=== PATIENT | male | born 1965 | race Caucasian/White ===

== ENCOUNTER 2021-09-09 13:36 | Inpatient (IN) | payer BC ==
[2021-09-09] MEDS ORDERED: Adenosine 6 MG/2 ML SDV ONE (13:58)
[2021-09-09] MEDS ORDERED: Adenosine 6 MG/2 ML SDV IVPUSH ONE (14:05)
[2021-09-09] MEDS ORDERED: Diltiazem 25 MG/5 ML SDV IVPUSH ONE (14:07)
[2021-09-09] MEDS ORDERED: Sodium Chloride 0.9% 2.5 ML Syringe FLUSH PRN (14:08)
[2021-09-09] MEDS ORDERED: Sodium Chloride 0.9% 1,000 ML IV ONE ×2 (14:08→17:58)
[2021-09-09] MEDS ORDERED: Aspirin 81 MG Tab.Chew PO ONE (14:08)
[2021-09-09] MEDS ORDERED: Sodium Chloride 0.9% 10 ML Syringe FLUSH PRN (14:08)
[2021-09-09] MEDS ORDERED: Enoxaparin 100 MG/1 ML Syringe SUBCUT STA (14:11)
[2021-09-09] MEDS ORDERED: Diltiazem 100 MG in Sodium Chloride 0.9% 100 ML IV SCH (14:15)
--- NOTE | 2021-09-09 14:31 | CR ---
INDICATION: Supraventricular tachycardia. Comparison: None. TECHNIQUE: Portable AP chest. FINDINGS: Normal size cardiac silhouette. Infiltrate lower lobe right lung. No pneumothorax or pleural effusion. IMPRESSION: Infiltrates lower lobe right lung. Dictated by Lori Cain MD @ 09/09/2021 2:30:08 PM (Electronically Signed)
[2021-09-09 14:51] LABS: BLOOD UREA NITROGEN,BUN 37 mg/dL (7.0-18.0); CARBON DIOXIDE,CO2 18.8 mmol/L (21.0-32.0); CHLORIDE,CL 97 mmol/L (98-107); GLUCOSE RANDOM 117 mg/dL (74-106); POTASSIUM,K 4.3 mmol/L (3.5-5.1); SODIUM,NA 135 mmol/L (136-148)
--- NOTE | 2021-09-09 14:52 | EDM.PDOC ---
<Pavel Trimble - Last Filed: 09/10/21 00:12> ED HPI GENERAL MEDICAL PROBLEM - General Chief Complaint: Gastrointestinal Problem Stated Complaint: NOT EATING OR KEEPING FOOD DOWN Time Seen by Provider: 09/09/21 13:45 - History of Present Illness INITIAL COMMENTS - FREE TEXT/NARRATIVE: Patient was signed out to me by Dr. Olguin pending reevaluation at 7pm. Apparently there are no available beds and at this time there is no ICU bed available here. We will continue to try to titrate the patient's Cardizem drip down. I promptly performed a detailed physical examination and my examination was done after ED treatments were initiated by the signout provider. Patient has been under the care of previous provider up until this point. On reevaluation patient's heart rate was rate controlled and was on lowest setting of Cardizem drip. The patient's blood pressure was borderline at this time however with a MAP greater than 65. The patient had no complaints. At this time the patient was already provided p.o. Cardizem. Will turn off the Cardizem drip and reevaluate. Dr. Simon did come and evaluate the patient recommended CT angiogram of the patient is able to obtain it. On repeat labs the patient's kidney function had improved. The patient is able to obtain a CT angiogram of the chest safely. Obtain a CT angiogram to evaluate for pulmonary embolism. The radiological images were viewed by myself along with reading the report from the radiologist. CT angiogram of the chest does not reveal any evidence of acute pulmonary embolism or other abnormality other than peripheral emphysema and moderate Covid pneumonia. The patient is observed in the emergency department for approximately 4 to 5 hours after Cardizem drip was titrated off. The patient's blood pressure continued to remain stable and his heart rate was controlled. I contacted Dr. Simon who accepted the patient for inpatient admission. - Related Data Allergies Allergy/AdvReac Type Severity Reaction Status Date / Time No Known Allergies Allergy Verified 09/10/21 01:06 Home Meds: Home Meds . [No Known Home Meds] 09/09/21 [History] Departure - Departure Time of Disposition: 23:33 Disposition: Admitted As Inpatient 66 Condition: Serious Clinical Impression: COVID-19, Atrial fibrillation with RVR, JANIA (acute kidney injury) - Discharge Information <Baron Olguin - Last Filed: 09/10/21 19:54> ED HPI GENERAL MEDICAL PROBLEM - History of Present Illness INITIAL COMMENTS - FREE TEXT/NARRATIVE: HISTORY AND PHYSICAL: History of present illness: Is a 55-year-old gentleman with a history significant for atrial fibrillation as well as a history of stroke in the past with minimal residual to his left upper extremity weakness, who is supposed to be on Eliquis but has been noncompliant for approximately 1 to 2 years now secondary to an argument with his primary care physician and inability to follow-up in the office 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 Patient reports he has had no recent fevers, shakes, chills, dysuria, frequency, urgency. Patient reports that he felt like his heart was racing and has had some chest discomfort that is been intermittent over the last several days. Patient reports that he has had significant amount of diarrhea and reports anytime he eats or drinks anything it comes out shortly thereafter is liquid stools. Patient denies any melena or b right red blood per rectum. Patient reports that he has had a dark productive cough over the last several days. Patient has then had Covid in the past nor has he had his Covid vaccinations. Patient does not complain of any shortness of breath. Patient complains of no peripheral edema or calf tenderness. Patient does complain of generalized malaise, headache, and constant thirst. Patient denies any hematuria. Review of systems: As per history of present illness and below otherwise all systems reviewed and negative. Past medical history: As per history of present illness and as reviewed below otherwise noncontributory. Surgical history: As per history of present illness and as reviewed below otherwise noncontributory. Social history: No reported history of drug abuse. Family history: As per history of present illness and as reviewed below otherwise noncontributory. Physical exam: This patient was seen and evaluated during the 2019 SARS-CoV-2 novel coronavirus pandemic period. Community viral transmission is ongoing at time of this encounter and the emergency department is operating under pandemic response procedures. Constitutional: Patient is oriented to person, place, and time. Appears well- developed and well-nourished. No distress. HEENT: Dry mucous membranes Head: Normocephalic and atraumatic Eyes: Right eye exhibits no discharge. Left eye exhibits no discharge. No scleral icterus Neck: Normal range of motion. No tracheal deviation present. Cardiovascular: Irregularly irregular tachycardia. Pulmonary: Effort normal, no respiratory distress. No wheezing rales or rhonchi Abd: Soft, nondistended, no rebound/guarding, no psoas or obturator signs, no tenderness at Mcberney's point, no Sawant's sign. Pt does not present with an exam that would be consistent with an acute surgical abdomen at this time. Mild tenderness palpation suprapubic region Musculoskeletal: Normal range of motion Neurologic: Alert and oriented to person, place and time. Skin: [place], warm and dry. Dry mucous membranes Psychiatric: Normal mood and affect. Behavior is normal. Judgment and thought content normal. Nursing note and vital signs have been reviewed Diagnostics: [] Therapeutics: 55-year-old gentleman who presented to the ED today in rapid atrial fibrillation. Patient has been noncompliant with his anticoagulation medicine for quite some time now. Patient's blood pressure is stable here in the ED. Patient's heart rate was greater than 200. Carotid sinus massage was performed in the ED with occasional dropped ventricular rate revealing no flutter waves. Patient was given adenosine 12 mg IV with no change in his heart rate or slowing his heart rate. Cardizem 25 mg/kg IV bolus over 5 minutes followed by a Cardizem drip was initiated. Patient's heart rate has significantly slowed after the bolus to a rate of 120 150 bpm. Assessment and plan: 55-year-old gentleman with a history of A. fib who presents in rhythm consistent with atrial fibrillation with RVR as well as clinical dehydration with significant episodes of diarrhea over the last week. Patient will have labs ordered including CBC, CMP, TSH, urinalysis, stool studies. Patient will have a CT scan of his abdomen pelvis secondary to abdominal pain once his heart rate has stabilized. Patient will get started on a Cardizem drip as the adenosine did not cardiovert him noted by carotid sinus massage. Patient be reevaluated after labs and CT scan obtained. Patient's chest x-ray reveals an infiltrate in the right lower lobe. Patient does not have a classical increased interstitial markings that are diffuse that are commonly seen in Covid pneumonia. Possibility of underlying lobar pneumonia exists. Patient was started on Rocephin and Zithromax. Patient also get started on remdesivir here in the ED secondary to his positive Covid test. You will also receive a dose of Decadron. Patient's Covid test is positive. Patient's labs are all within normal limits with a normal troponin. Patient has had C. difficile, Shigella, stool cultures sent to the lab secondary to his diarrhea. Critical Care: The high probability of sudden, clinically significant dete rioration in the patient's condition required the highest level of my preparedness to intervene urgently. The services I provided to this patient were to treat and/or prevent clinically significant deterioration. Services included the following: chart data review, reviewing nursing notes and/or old charts, documentation time, ergonomics consultant collaboration regarding findings and treatment options, medication orders and management, direct patient care, vital sign assessments and ordering, interpreting and reviewing diagnostic studies/lab tests. Aggregate critical care time includes only time during which I was engaged inwork directly related to the patient's care, as described above, whether at the bedside or elsewhere in the Emergency Department. It did not include time spent performing other reported procedures or the services of residents, students, nurses or physician assistants. Critical Care Time: 35 minutes Patient will need admission however unfortunately did not have any ICU beds available here in [facility] to accommodate a Cardizem drip. 3:40 PM: Consulted [facility] currently on EMTALA diversion for ICU beds. No availability at this time to accept patient for transfer. 3:45 PM: Consulted [facility] currently on EMTALA diversion for ICU beds. No availability at this time to accept patient for transfer. 3:50 PM: Consult with [facility]:currently on EMTALA diversion for ICU beds. No availability at this time to accept patient for transfer. 3:55 PM: Consulted [facility]:currently on EMTALA diversion for ICU beds. No availability at this time to accept patient for transfer. 4 PM: Consulted [facility]: currently on EMTALA diversion for ICU beds. No availability at this time to accept patient for transfer. 4:10 PM: Consulted the [place] transfer center: They will check with hospitals in the vicinity and they will get back to me later. 5:44 PM: Consulted [facility]: currently on EMTALA diversion for ICU beds. No availability at this time to accept patient for transfer. 5:50 PM: Consulted [facility] [place], [facility], [facility] in [place]: All are currently on EMTALA diversion for ICU beds. No availability at this time to accept patient for transfer. 5:17 PM: In summary, this is a 55-year-old gentleman with a history significant for atrial fibrillation, CVA, noncompliance with his anticoagulation medication who presents ER today secondary to feeling extremely dehydrated secondary to diarrhea for the last week as well as generalized malaise over the last couple days with a dark productive cough and tactile fevers. Upon arrival to the ED the patient was noted to have a heart rate of approximately 200 bpm and appeared to be clearly in atrial fibrillation. Carotid sinus massage was initially performed that did slow his heart rate down to approximately 170 bpm and revealed no flutter waves and appear to be more consistent with atrial fibrillation. In order to confirm this, adenosine 12 mg IV was administered which again slowed his ventricularly rate slightly resulting in no flutter waves. Patient's heart rate sped back up to approximately 200 bpm after the adenosine wore off so patient was bolused with Cardizem and started on a Cardizem drip. Patient is CT scan of his abdomen pelvis secondary to the abdominal discomfort that he was having. Patient CT scan of his abdomen pelvis did not reveal any significant pathology within his abdomen but did reveal a groundglass appearance to the the bases of his lungs consistent with Covid pneumonia. Patient did have a chest x-ray which revealed a right lower lobe infiltrate that was concerning for lobar pneumonia. 1. Atrial fibrillation with RVR: Patient has been started on Lovenox subcu secondary to his noncompliance with his anticoagulation therapy while in atrial fibrillation. Patient was also given a dose of p.o. Cardizem to initiate transition from IV to oral rate control. Patient has been given 1 L of NSS for hydration. Given that the patient is currently on a Cardizem drip he will need ICU/stepdown unit level of care which is currently unavailable in many of the facilities in [place] and the surrounding [place] area. EKG #2 obtained at 5:14 PM: EKG: As interpreted by ER physician: Sharif: Nonspecific ST-T wave abnormalities Normal axis No evidence of ST elevation [place] Atrial fibrillation with a heart of 115 2. Covid pneumonia: Patient has a positive Covid test and has not had his Covid vaccination. Patient's CT scan of his abdomen pelvis reveals groundglass appearance to the lower lung perkins. Given the initial chest x-ray patient was started on Rocephin and Zithromax and blood cultures x2 and lactic acid was obtained. Patient has been given a dose of remdesivir IV as well as Decadron. 3. Abdominal pain: Patient is clinically and hemodynamically stable. Etiology of abdominal pain is likely related to his coronavirus infection with significant amount of diarrhea. Patient has had C. difficile, stool cultures sent to the lab. Patient will get hydrated here in the ED. Patient has been given antiemetics and feels improved at this time. 4. Chest pain: This is likely secondary to inflammatory changes from his coronavirus as well as his A. fib with RVR. Patient's troponin is negative. Patient's chest x-ray reveals infiltrate/pneumonia. Patient is not hypoxic and not complaining of shortness of breath at this time. I believe PE is extremely unlikely at this time. Definitive disposition and diagnosis as appropriate pending reevaluation and review of above. 544 abdomen Pain Score (Numeric/FACES): 5 Past Medical History Cardiovascular History: Reports: Afib Neurological History: Reports: CVA - Infectious Disease History Infectious Disease History: Reports: Chicken Pox Social & Family History - Recreational Drug Use Recreational Drug Use: No ED ROS GENERAL - Review of Systems Review Of Systems: See Below ED EXAM, GENERAL - Physical Exam Exam: See Below #2 Interpretation EKG Date: 09/09/21 Time: 17:14 EKG Interpretation Comments: EKG: As interpreted by ER physician: Sharif: Nonspecific ST-T wave abnormalities Normal axis No evidence of ST elevation [place] Atrial fibrillation with a heart rate of 115 Course - Vital Signs Last Recorded V/S: Last Vital Signs Temp 95.7 F L 09/10/21 16:00 Pulse 88 09/10/21 16:00 Resp 22 H 09/10/21 16:00 BP 98/59 L 09/10/21 16:00 Pulse Ox 91 L 09/10/21 16:00 - Orders/Labs/Meds Orders: Active Orders 24 hr Category Date Time Status Diltiazem IR [Cardizem] Med 09/10/21 00:00 Active 30 mg PO Q6HR Pantoprazole [ProTONIX] Med 09/09/21 20:15 Active 40 mg PO DAILY Medication Orders Diltiazem HCl (Diltiazem Ir 30 Mg Tab) 30 mg PO Q6HR [facility] Last Admin: 09/10/21 18:08 Dose: 30 mg Documented by: Admin: 09/10/21 11:59 Dose: 30 mg Documented by: Admin: 09/10/21 06:41 Dose: Not Given Documented by: Admin: 09/10/21 02:04 Dose: 30 mg Documented by: ELIZABETH Enoxaparin Sodium (Enoxaparin 100 Mg/1 Ml Syringe) 80 mg SUBCUT Q12H [facility] Last Admin: 09/10/21 18:08 Dose: 80 mg Documented by: Admin: 09/10/21 06:42 Dose: 80 mg Documented by: ELIZABETH Pantoprazole Sodium (Pantoprazole 40 Mg Tab.Cr) 40 mg PO DAILY [facility] Last Admin: 09/10/21 08:00 Dose: 40 mg Documented by: Admin: 09/09/21 21:39 Dose: 40 mg Documented by: PARAS Sodium Chloride (Sodium Chloride 0.9% 10 Ml Syringe) 10 ml FLUSH ASDIRECTED PRN PRN Reason: Keep Vein Open Last Admin: 09/09/21 14:16 Dose: 10 ml Documented by: NILDA Sodium Chloride (Sodium Chloride 0.9% 2.5 Ml Syringe) 2.5 ml FLUSH ASDIRECTED PRN PRN Reason: Keep Vein Open Last Admin: 09/09/21 14:16 Dose: 2.5 ml Documented by: NILDA Labs: Laboratory Tests 09/09/21 09/09/21 09/09/21 Range/Units 13:55 13:55 13:55 WBC 7.53 (4.0-11.0) K/uL RBC 5.75 (4.50-5.90) M/uL Hgb 18.2 H (13.0-17.0) g/dL Hct 51.9 H (38.0-50.0) % MCV 90.3 (80.0-98.0) fL MCH 31.7 (27.0-32.0) pg MCHC 35.1 (31.0-37.0) g/dL RDW Std Deviation 43.3 (28.0-62.0) fl RDW Coeff of Manish 13 (11.0-15.0) % Plt Count 130 L (150-400) K/uL MPV 11.10 (7.40-12.00) fL Add Manual Diff YES Neutrophils % (Manual) 77 (48.0-80.0) % Band Neutrophils % 2 % Lymphocytes % (Manual) 18 (16.0-40.0) % Monocytes % (Manual) 3 (0.0-15.0) % Nucleated RBC % 0.0 /100WBC Absolute Seg Neuts 5.8 H (1.4-5.7) Band Neutrophils # 0.2 Lymphocytes # (Manual) 1.4 (0.6-2.4) Monocytes # (Manual) 0.2 (0.0-0.8) Nucleated RBCs # 0 K/uL INR 1.21 APTT 30.8 (18.6-31.3) SEC Sodium 135 L (136-148) mmol/L Potassium 4.3 (3.5-5.1) mmol/L Chloride 97 L (98-107) mmol/L Carbon Dioxide 18.8 L (21.0-32.0) mmol/L BUN 37 H (7.0-18.0) mg/dL Creatinine 2.1 H (0.8-1.3) mg/dL Est Cr Clr Drug Dosing 44.82 mL/min Estimated GFR (MDRD) 32.7 ml/min Glucose 117 H (74-106) mg/dL Lactic Acid (0.4-2.0) mmol/L Calcium 8.7 (8.5-10.1) mg/dL Magnesium (1.8-2.4) mg/dL Total Bilirubin 0.5 (0.2-1.0) mg/dL AST 51 H (15-37) IU/L ALT 26 (14-63) IU/L Alkaline Phosphatase 62 (46-116) U/L Troponin I < 0.050 (0.000-0.056) ng/mL Total Protein 8.2 (6.4-8.2) g/dL Albumin 3.2 L (3.4-5.0) g/dL Globulin 5.0 H (2.6-4.0) g/dL Albumin/Globulin Ratio 0.6 L (0.9-1.6) TSH, Ultra Sensitive 0.65 (0.36-3.74) uIU/mL Urine Color Urine Appearance Urine pH (5.0-8.0) Ur Specific [place] (1.001-1.035) Urine Protein (NEGATIVE) mg/dL Urine Glucose (UA) (NEGATIVE) mg/dL Urine Ketones (NEGATIVE) mg/dL Urine Occult Blood (NEGATIVE) Urine Nitrite (NEGATIVE) Urine Bilirubin (NEGATIVE) Urine Urobilinogen (<2.0) EU/dL Ur Leukocyte Esterase (NEGATIVE) U Hyaline Cast (Auto) (0-2/LPF) Urine RBC (0-2/HPF) Urine WBC (0-5/HPF) Ur Epithelial Cells (NONE-FEW) Urine Bacteria (NEGATIVE) Urine Mucus (NONE-MOD) SARS-CoV-2 RNA (CHERYL) (NEGATIVE) 09/09/21 09/09/21 09/09/21 Range/Units 13:55 14:00 16:30 WBC (4.0-11.0) K/uL RBC (4.50-5.90) M/uL Hgb (13.0-17.0) g/dL Hct (38.0-50.0) % MCV (80.0-98.0) fL MCH (27.0-32.0) pg MCHC (31.0-37.0) g/dL RDW Std Deviation (28.0-62.0) fl RDW Coeff of Manish (11.0-15.0) % Plt Count (150-400) K/uL MPV (7.40-12.00) fL Add Manual Diff Neutrophils % (Manual) (48.0-80.0) % Band Neutrophils % % Lymphocytes % (Manual) (16.0-40.0) % Monocytes % (Manual) (0.0-15.0) % Nucleated RBC % /100WBC Absolute Seg Neuts (1.4-5.7) Band Neutrophils # Lymphocytes # (Manual) (0.6-2.4) Monocytes # (Manual) (0.0-0.8) Nucleated RBCs # K/uL INR APTT (18.6-31.3) SEC Sodium (136-148) mmol/L Potassium (3.5-5.1) mmol/L Chloride (98-107) mmol/L Carbon Dioxide (21.0-32.0) mmol/L BUN (7.0-18.0) mg/dL Creatinine (0.8-1.3) mg/dL Est Cr Clr Drug Dosing mL/min Estimated GFR (MDRD) ml/min Glucose (74-106) mg/dL Lactic Acid 1.8 (0.4-2.0) mmol/L Calcium (8.5-10.1) mg/dL Magnesium 2.2 (1.8-2.4) mg/dL Total Bilirubin (0.2-1.0) mg/dL AST (15-37) IU/L ALT (14-63) IU/L Alkaline Phosphatase (46-116) U/L Troponin I (0.000-0.056) ng/mL Total Protein (6.4-8.2) g/dL Albumin (3.4-5.0) g/dL Globulin (2.6-4.0) g/dL Albumin/Globulin Ratio (0.9-1.6) TSH, Ultra Sensitive (0.36-3.74) uIU/mL Urine Color Urine Appearance Urine pH (5.0-8.0) Ur Specific [place] (1.001-1.035) Urine Protein (NEGATIVE) mg/dL Urine Glucose (UA) (NEGATIVE) mg/dL Urine Ketones (NEGATIVE) mg/dL Urine Occult Blood (NEGATIVE) Urine Nitrite (NEGATIVE) Urine Bilirubin (NEGATIVE) Urine Urobilinogen (<2.0) EU/dL Ur Leukocyte Esterase (NEGATIVE) U Hyaline Cast (Auto) (0-2/LPF) Urine RBC (0-2/HPF) Urine WBC (0-5/HPF) Ur Epithelial Cells (NONE-FEW) Urine Bacteria (NEGATIVE) Urine Mucus (NONE-MOD) SARS-CoV-2 RNA (CHERYL) POSITIVE H (NEGATIVE) 09/09/21 09/09/21 Range/Units 19:31 20:30 WBC (4.0-11.0) K/uL RBC (4.50-5.90) M/uL Hgb (13.0-17.0) g/dL Hct (38.0-50.0) % MCV (80.0-98.0) fL MCH (27.0-32.0) pg MCHC (31.0-37.0) g/dL RDW Std Deviation (28.0-62.0) fl RDW Coeff of Manish (11.0-15.0) % Plt Count (150-400) K/uL MPV (7.40-12.00) fL Add Manual Diff Neutrophils % (Manual) (48.0-80.0) % Band Neutrophils % % Lymphocytes % (Manual) (16.0-40.0) % Monocytes % (Manual) (0.0-15.0) % Nucleated RBC % /100WBC Absolute Seg Neuts (1.4-5.7) Band Neutrophils # Lymphocytes # (Manual) (0.6-2.4) Monocytes # (Manual) (0.0-0.8) Nucleated RBCs # K/uL INR APTT (18.6-31.3) SEC Sodium 137 (136-148) mmol/L Potassium 3.9 (3.5-5.1) mmol/L Chloride 106 (98-107) mmol/L Carbon Dioxide 19.2 L (21.0-32.0) mmol/L BUN 37 H (7.0-18.0) mg/dL Creatinine 1.4 H (0.8-1.3) mg/dL Est Cr Clr Drug Dosing 67.23 mL/min Estimated GFR (MDRD) 52.2 ml/min Glucose 155 H (74-106) mg/dL Lactic Acid (0.4-2.0) mmol/L Calcium 7.4 L (8.5-10.1) mg/dL Magnesium 1.8 (1.8-2.4) mg/dL Total Bilirubin (0.2-1.0) mg/dL AST (15-37) IU/L ALT (14-63) IU/L Alkaline Phosphatase (46-116) U/L Troponin I (0.000-0.056) ng/mL Total Protein (6.4-8.2) g/dL Albumin (3.4-5.0) g/dL Globulin (2.6-4.0) g/dL Albumin/Globulin Ratio (0.9-1.6) TSH, Ultra Sensitive (0.36-3.74) uIU/mL Urine Color YELLOW Urine Appearance SLT CLOUDY Urine pH 5.5 (5.0-8.0) Ur Specific [place] >= 1.030 (1.001-1.035) Urine Protein 100 H (NEGATIVE) mg/dL Urine Glucose (UA) NEGATIVE (NEGATIVE) mg/dL Urine Ketones 15 H (NEGATIVE) mg/dL Urine Occult Blood MODERATE H (NEGATIVE) Urine Nitrite NEGATIVE (NEGATIVE) Urine Bilirubin NEGATIVE (NEGATIVE) Urine Urobilinogen 0.2 (<2.0) EU/dL Ur Leukocyte Esterase NEGATIVE (NEGATIVE) U Hyaline Cast (Auto) 1-4 (0-2/LPF) Urine RBC 0-2 (0-2/HPF) Urine WBC 0-2 (0-5/HPF) Ur Epithelial Cells OCCASIONAL (NONE-FEW) Urine Bacteria FEW (NEGATIVE) Urine Mucus LIGHT (NONE-MOD) SARS-CoV-2 RNA (CHERYL) (NEGATIVE) Meds: Medications Generic Name Dose Route Start Last Admin Trade Name Freq PRN Reason Stop Dose Admin Diltiazem HCl 30 mg 09/10/21 00:00 09/10/21 18:08 Diltiazem Ir 30 Mg Tab PO 30 mg Q6HR SHALONDA Administration Enoxaparin Sodium 80 mg 09/10/21 06:00 09/10/21 18:08 Enoxaparin 100 Mg/1 Ml Syringe SUBCUT 80 mg Q12H SHALONDA Administration Pantoprazole Sodium 40 mg 09/09/21 20:15 09/10/21 08:00 Pantoprazole 40 Mg Tab.Cr PO 40 mg DAILY SHALONDA Administration Sodium Chloride 10 ml 09/09/21 14:08 09/09/21 14:16 Sodium Chloride 0.9% 10 Ml Syringe FLUSH 10 ml ASDIRECTED PRN Administration Keep Vein Open Sodium Chloride 2.5 ml 09/09/21 14:08 09/09/21 14:16 Sodium Chloride 0.9% 2.5 Ml Syringe FLUSH 2.5 ml ASDIRECTED PRN Administration Keep Vein Open Discontinued Medications Generic Name Dose Route Start Last Admin Trade Name Freq PRN Reason Stop Dose Admin Acetaminophen 650 mg 09/09/21 17:29 09/09/21 18:08 Acetaminophen 325 Mg Tab PO 09/09/21 17:30 650 mg NOW ONE Administration Adenosine Confirm 09/09/21 13:58 09/09/21 14:16 Adenosine 6 Mg/2 Ml Sdv Administered 09/09/21 13:59 Not Given Dose 12 mg .ROUTE .STK-MED ONE Adenosine 12 mg 09/09/21 14:05 09/09/21 14:14 Adenosine 6 Mg/2 Ml Sdv IVPUSH 09/09/21 14:06 12 mg NOW ONE Administration Aspirin 324 mg 09/09/21 14:08 09/09/21 14:15 Aspirin 81 Mg Tab.Chew PO 09/09/21 14:09 324 mg ONETIME ONE Administration Dexamethasone 10 mg 09/09/21 16:14 09/09/21 17:21 Dexamethasone 10 Mg/Ml Sdv IVPUSH 09/09/21 16:15 10 mg ONETIME ONE Administration Diltiazem HCl 20 mg 09/09/21 14:07 09/09/21 14:15 Diltiazem 25 Mg/5 Ml Sdv IVPUSH 09/09/21 14:08 20 mg ONETIME ONE Administration Diltiazem HCl 180 mg 09/09/21 16:23 09/09/21 17:21 Diltiazem 180 Mg Cap.Cd PO 09/09/21 16:24 180 mg ONETIME ONE Administration Diltiazem HCl 30 mg 09/09/21 18:57 09/09/21 19:29 Diltiazem Ir 30 Mg Tab PO 09/09/21 18:58 30 mg ONETIME ONE Administration Enoxaparin Sodium 80 mg 09/09/21 14:11 09/09/21 15:01 Enoxaparin 100 Mg/1 Ml Syringe 1 mg/kg (80 mg) 09/09/21 14:12 80 mg SUBCUT Administration ONETIME STA Enoxaparin Sodium 80 mg 09/10/21 03:00 09/10/21 04:34 Enoxaparin 60 Mg/0.6 Ml Syringe SUBCUT Not Given Q12H SHALONDA Diltiazem HCl 100 mg/ Sodium 100 mls @ 5 mls/hr 09/09/21 14:15 09/09/21 19:33 Chloride IV 0 mg/hr NOW SHALONDA 0 mls/hr Titration Protocol 5 MG/HR Sodium Chloride 1,000 mls @ 999 mls/hr 09/09/21 14:08 09/09/21 14:15 Normal Saline IV 09/09/21 15:08 999 mls/hr .Bolus ONE Administration Ceftriaxone Sodium/Dextrose 1 50 mls @ 100 mls/hr 09/09/21 15:50 09/09/21 16:11 gm/ Premix IV 09/09/21 16:19 100 mls/hr ONETIME ONE Administration Azithromycin 500 mg/ Sodium 250 mls @ 250 mls/hr 09/09/21 16:00 09/09/21 18:31 Chloride IV 250 mls/hr ONETIME SHALONDA Administration Remdesivir 200 mg/ Sodium 250 mls @ 250 mls/hr 09/09/21 16:14 09/09/21 17:22 Chloride IV 09/09/21 16:15 250 mls/hr ONETIME ONE Administration Remdesivir 200 mg/ Sodium 250 mls @ 250 mls/hr 09/09/21 17:00 09/09/21 17:39 Chloride IV 09/09/21 17:59 Not Given ONETIME ONE Lactated Ringer's 1,000 mls @ 999 mls/hr 09/09/21 17:28 09/09/21 18:50 Ringers, Lactated IV 09/09/21 18:28 999 mls/hr .BOLUS ONE Administration Sodium Chloride 1,000 mls @ 999 mls/hr 09/09/21 17:58 09/09/21 13:50 Normal Saline IV 09/09/21 18:58 999 mls/hr .Bolus ONE Administration Remdesivir 100 mg/ Sodium 100 mls @ 100 mls/hr 09/10/21 18:45 Chloride IV 09/13/21 19:44 Q24H SHALONDA Iopamidol 75 ml 09/09/21 20:36 09/09/21 20:37 Iopamidol 755 Mg/Ml 500 Ml Multipack Bottle IVPUSH 09/09/21 20:37 75 ml ONETIME STA Administration Ketorolac Tromethamine 15 mg 09/09/21 18:38 09/09/21 18:51 Ketorolac 30 Mg/Ml Sdv IVPUSH 09/09/21 18:39 15 mg ONETIME ONE Administration Sepsis Event Note (ED) - Evaluation Sepsis Screening Result: No Definite Risk
[2021-09-09] MEDS ORDERED: cefTRIAXone 1 GM in Premix Bag 1 BAG IV ONE (15:50)
[2021-09-09] MEDS ORDERED: Azithromycin 500 MG in Sodium Chloride 0.9% 250 ML IV SCH (16:00)
[2021-09-09] MEDS ORDERED: REMDESIVIR 200 MG in Sodium Chloride 0.9% 250 ML IV ONE ×2 (16:14→17:00)
[2021-09-09] MEDS ORDERED: Dexamethasone 10 MG/ML SDV IVPUSH ONE (16:14)
[2021-09-09] MEDS ORDERED: Diltiazem 180 MG Cap.CD PO ONE (16:23)
--- NOTE | 2021-09-09 16:28 | CT ---
INDICATION: Abdominal pain and diarrhea TECHNIQUE: CT abdomen and pelvis acquired without IV contrast. COMPARISON: None FINDINGS: Lower chest: Ground-glass opacities in both bases. Liver: Unremarkable. Spleen: Unremarkable. Pancreas: Unremarkable. Gallbladder and bile ducts: Unremarkable. Adrenal glands: Unremarkable. Kidneys: Nonobstructive 2 mm left renal stone. GI tract: Unremarkable. Appendix is normal. Vascular structures: Aorta iliac calcifications. Lymph nodes: Unremarkable. Miscellaneous: Small fat containing umbilical and right inguinal hernias. No free air or significant free fluid. Pelvic Organs: Unremarkable. Bones: Unremarkable for age. IMPRESSION: Ground-glass opacities in both lung bases concerning for infection, including COVID-19. No acute intra-abdominal process identified. Nonobstructive left nephrolithiasis. Please note that all CT scans at this facility use dose modulation, iterative reconstruction, and/or weight-based dosing when appropriate to reduce radiation dose to as low as reasonably achievable. Dictated by Myrtle Brown MD @ 09/09/2021 4:27:03 PM (Electronically Signed)
[2021-09-09] MEDS ORDERED: Lactated Ringers 1,000 ML IV ONE (17:28)
[2021-09-09] MEDS ORDERED: Acetaminophen 325 MG Tab PO ONE (17:29)
[2021-09-09] MEDS ORDERED: Ketorolac 30 MG/ML SDV IVPUSH ONE (18:38)
[2021-09-09] MEDS ORDERED: Diltiazem IR 30 MG Tab PO ONE (18:57)
[2021-09-09 19:51] LABS: CARBON DIOXIDE,CO2 19.2 mmol/L (21.0-32.0); POTASSIUM,K 3.9 mmol/L (3.5-5.1)
--- NOTE | 2021-09-09 20:19 | PCM.HP.2 ---
H&P History of Present Illness - General Date of Service: 09/09/21 - History of Present Illness Initial Comments - Free Text/Narative: 55 yo male who presents with ten days of abdominal pain and diarrhea. He has not eating much and feels dehydrated. He also reports fevers and mild nonproductive cough. He was seen in the ED and noted to have atrial fibrillation with RVR. He reports a history of a.fib but has not been on any medications for it. CT scan of the abdomen was unremarkable but did reports bibasilar lung infiltrates. PAtient was given rocephin and azithromycin. Patient denies any shortness of breath he was on supplemental oxygen but was quickly weaned off. He was started on a diltiazem drip and his heart is now in the 90s. abdomen Pain Score (Numeric/FACES): 5 - Related Data Allergies/Adverse Reactions: Allergies Allergy/AdvReac Type Severity Reaction Status Date / Time No Known Allergies Allergy Verified 09/09/21 13:43 Home Medications: Home Meds . [No Known Home Meds] 09/09/21 [History] Past Medical History Cardiovascular History: Reports: Afib Neurological History: Reports: CVA - Infectious Disease History Infectious Disease History: Reports: Chicken Pox Social & Family History - Recreational Drug Use Recreational Drug Use: No H&P Review of Systems - Review of Systems: Review Of Systems: Comprehensive ROS is negative, except as noted in HPI. Exam - Exam Exam: See Below - Vital Signs Vital Signs: Last Vital Signs Temp 37.9 C 09/09/21 17:57 Pulse 95 09/09/21 19:00 Resp 18 09/09/21 18:00 BP 96/58 L 09/09/21 19:00 Pulse Ox 98 09/09/21 19:00 Weight: 81.647 kg - Exam General: Alert, Oriented HEENT: Mucosa Moist & [place] Lungs: Clear to Auscultation, Normal Respiratory Effort Cardiovascular: Regular Rate, Irregular Rhythm GI/Abdominal Exam: Soft, Non-Tender, No Distention Extremities: Non-Tender, No Pedal Edema - Patient Data Lab Results Last 24 hrs: Laboratory Results - last 24 hr 09/09/21 09/09/21 09/09/21 Range/Units 13:55 13:55 13:55 WBC 7.53 (4.0-11.0) K/uL RBC 5.75 (4.50-5.90) M/uL Hgb 18.2 H (13.0-17.0) g/dL Hct 51.9 H (38.0-50.0) % MCV 90.3 (80.0-98.0) fL MCH 31.7 (27.0-32.0) pg MCHC 35.1 (31.0-37.0) g/dL RDW Std Deviation 43.3 (28.0-62.0) fl RDW Coeff of Manish 13 (11.0-15.0) % Plt Count 130 L (150-400) K/uL MPV 11.10 (7.40-12.00) fL Add Manual Diff YES Neutrophils % (Manual) 77 (48.0-80.0) % Band Neutrophils % 2 % Lymphocytes % (Manual) 18 (16.0-40.0) % Monocytes % (Manual) 3 (0.0-15.0) % Nucleated RBC % 0.0 /100WBC Absolute Seg Neuts 5.8 H (1.4-5.7) Band Neutrophils # 0.2 Lymphocytes # (Manual) 1.4 (0.6-2.4) Monocytes # (Manual) 0.2 (0.0-0.8) Nucleated RBCs # 0 K/uL INR 1.21 APTT 30.8 (18.6-31.3) SEC Sodium 135 L (136-148) mmol/L Potassium 4.3 (3.5-5.1) mmol/L Chloride 97 L (98-107) mmol/L Carbon Dioxide 18.8 L (21.0-32.0) mmol/L BUN 37 H (7.0-18.0) mg/dL Creatinine 2.1 H (0.8-1.3) mg/dL Est Cr Clr Drug Dosing 44.82 mL/min Estimated GFR (MDRD) 32.7 ml/min Glucose 117 H (74-106) mg/dL Lactic Acid (0.4-2.0) mmol/L Calcium 8.7 (8.5-10.1) mg/dL Magnesium (1.8-2.4) mg/dL Total Bilirubin 0.5 (0.2-1.0) mg/dL AST 51 H (15-37) IU/L ALT 26 (14-63) IU/L Alkaline Phosphatase 62 (46-116) U/L Troponin I < 0.050 (0.000-0.056) ng/mL Total Protein 8.2 (6.4-8.2) g/dL Albumin 3.2 L (3.4-5.0) g/dL Globulin 5.0 H (2.6-4.0) g/dL Albumin/Globulin Ratio 0.6 L (0.9-1.6) TSH, Ultra Sensitive 0.65 (0.36-3.74) uIU/mL SARS-CoV-2 RNA (CHERYL) (NEGATIVE) 09/09/21 09/09/21 09/09/21 Range/Units 13:55 14:00 16:30 WBC (4.0-11.0) K/uL RBC (4.50-5.90) M/uL Hgb (13.0-17.0) g/dL Hct (38.0-50.0) % MCV (80.0-98.0) fL MCH (27.0-32.0) pg MCHC (31.0-37.0) g/dL RDW Std Deviation (28.0-62.0) fl RDW Coeff of Manish (11.0-15.0) % Plt Count (150-400) K/uL MPV (7.40-12.00) fL Add Manual Diff Neutrophils % (Manual) (48.0-80.0) % Band Neutrophils % % Lymphocytes % (Manual) (16.0-40.0) % Monocytes % (Manual) (0.0-15.0) % Nucleated RBC % /100WBC Absolute Seg Neuts (1.4-5.7) Band Neutrophils # Lymphocytes # (Manual) (0.6-2.4) Monocytes # (Manual) (0.0-0.8) Nucleated RBCs # K/uL INR APTT (18.6-31.3) SEC Sodium (136-148) mmol/L Potassium (3.5-5.1) mmol/L Chloride (98-107) mmol/L Carbon Dioxide (21.0-32.0) mmol/L BUN (7.0-18.0) mg/dL Creatinine (0.8-1.3) mg/dL Est Cr Clr Drug Dosing mL/min Estimated GFR (MDRD) ml/min Glucose (74-106) mg/dL Lactic Acid 1.8 (0.4-2.0) mmol/L Calcium (8.5-10.1) mg/dL Magnesium 2.2 (1.8-2.4) mg/dL Total Bilirubin (0.2-1.0) mg/dL AST (15-37) IU/L ALT (14-63) IU/L Alkaline Phosphatase (46-116) U/L Troponin I (0.000-0.056) ng/mL Total Protein (6.4-8.2) g/dL Albumin (3.4-5.0) g/dL Globulin (2.6-4.0) g/dL Albumin/Globulin Ratio (0.9-1.6) TSH, Ultra Sensitive (0.36-3.74) uIU/mL SARS-CoV-2 RNA (CHERYL) POSITIVE H (NEGATIVE) 09/09/21 Range/Units 19:31 WBC (4.0-11.0) K/uL RBC (4.50-5.90) M/uL Hgb (13.0-17.0) g/dL Hct (38.0-50.0) % MCV (80.0-98.0) fL MCH (27.0-32.0) pg MCHC (31.0-37.0) g/dL RDW Std Deviation (28.0-62.0) fl RDW Coeff of Manish (11.0-15.0) % Plt Count (150-400) K/uL MPV (7.40-12.00) fL Add Manual Diff Neutrophils % (Manual) (48.0-80.0) % Band Neutrophils % % Lymphocytes % (Manual) (16.0-40.0) % Monocytes % (Manual) (0.0-15.0) % Nucleated RBC % /100WBC Absolute Seg Neuts (1.4-5.7) Band Neutrophils # Lymphocytes # (Manual) (0.6-2.4) Monocytes # (Manual) (0.0-0.8) Nucleated RBCs # K/uL INR APTT (18.6-31.3) SEC Sodium 137 (136-148) mmol/L Potassium 3.9 (3.5-5.1) mmol/L Chloride 106 (98-107) mmol/L Carbon Dioxide 19.2 L (21.0-32.0) mmol/L BUN 37 H (7.0-18.0) mg/dL Creatinine 1.4 H (0.8-1.3) mg/dL Est Cr Clr Drug Dosing 67.23 mL/min Estimated GFR (MDRD) 52.2 ml/min Glucose 155 H (74-106) mg/dL Lactic Acid (0.4-2.0) mmol/L Calcium 7.4 L (8.5-10.1) mg/dL Magnesium 1.8 (1.8-2.4) mg/dL Total Bilirubin (0.2-1.0) mg/dL AST (15-37) IU/L ALT (14-63) IU/L Alkaline Phosphatase (46-116) U/L Troponin I (0.000-0.056) ng/mL Total Protein (6.4-8.2) g/dL Albumin (3.4-5.0) g/dL Globulin (2.6-4.0) g/dL Albumin/Globulin Ratio (0.9-1.6) TSH, Ultra Sensitive (0.36-3.74) uIU/mL SARS-CoV-2 RNA (CHERYL) (NEGATIVE) Result Diagrams: 09/09/21 13:55 09/09/21 19:31 Sepsis Event Note - Evaluation Sepsis Screening Result: No Definite Risk - Focused Exam Vital Signs: Vital Signs Temp Temp Pulse Resp BP Pulse Ox 09/09/21 19:00 95 96/58 L 98 09/09/21 18:00 106 H 18 107/59 L 93 L 09/09/21 17:57 37.9 C 104 H 18 115/65 94 L 09/09/21 17:30 111 H 18 107/68 95 09/09/21 16:57 116 H 18 100/70 93 L 09/09/21 16:39 36.6 C 138 H 16 93/60 94 L 09/09/21 16:13 117 H 16 104/67 96 09/09/21 15:57 127 H 18 95/47 L 96 09/09/21 15:09 124 H 18 103/80 96 09/09/21 14:51 138 H 113/74 97 09/09/21 14:35 127 H 18 95/60 94 L 09/09/21 14:20 102/77 09/09/21 13:45 36.6 C 94 20 137/89 - Problem List (1) COVID-19 SNOMED Code(s): 351394105 ICD Code: U07.1 - COVID-19 Status: Acute Current Visit: Yes (2) Dehydration SNOMED Code(s): 61600490 ICD Code: E86.0 - DEHYDRATION Status: Acute Current Visit: Yes (3) JANIA (acute kidney injury) SNOMED Code(s): 04462259, 17551808 ICD Code: N17.9 - ACUTE KIDNEY FAILURE, UNSPECIFIED Status: Acute Current Visit: Yes (4) Atrial fibrillation with RVR SNOMED Code(s): 154777040778896 ICD Code: I48.91 - UNSPECIFIED ATRIAL FIBRILLATION Status: Acute Current Visit: Yes Problem List Initiated/Reviewed/Updated: Yes Orders Last 24hrs: Active Orders 24 hr Category Date Time Status Ang Chest [CT] Stat Exams 09/09/21 19:57 Ordered BILIRUBIN DIRECT [CHEM] DAILY Lab 09/10/21 18:45 Ordered BILIRUBIN DIRECT [CHEM] DAILY Lab 09/11/21 18:45 Ordered BILIRUBIN DIRECT [CHEM] DAILY Lab 09/12/21 18:45 Ordered BILIRUBIN DIRECT [CHEM] DAILY Lab 09/13/21 18:45 Ordered BILIRUBIN DIRECT [CHEM] DAILY Lab 09/14/21 18:45 Ordered C DIFFICILE AG/TOXIN W/REFLEX [RM] Stat Lab 09/09/21 14:56 Ordered COMPREHENSIVE METABOLIC PN,CMP [CHEM] DAILY Lab 09/10/21 18:45 Ordered COMPREHENSIVE METABOLIC PN,CMP [CHEM] DAILY Lab 09/11/21 18:45 Ordered COMPREHENSIVE METABOLIC PN,CMP [CHEM] DAILY Lab 09/12/21 18:45 Ordered COMPREHENSIVE METABOLIC PN,CMP [CHEM] DAILY Lab 09/13/21 18:45 Ordered COMPREHENSIVE METABOLIC PN,CMP [CHEM] DAILY Lab 09/14/21 18:45 Ordered CULTURE BLOOD [BC] Stat Lab 09/09/21 16:23 Received CULTURE BLOOD [BC] Stat Lab 09/09/21 16:30 Received STOOL CULTURE/SHIGA TOXIN [MREF] Stat Lab 09/09/21 14:56 Ordered UA W/EDUARDO RFLX IF INDICATED [URIN] Stat Lab 09/09/21 14:09 Ordered Azithromycin [Zithromax] 500 mg Med 09/09/21 16:00 Active Sodium Chloride 0.9% [Normal Saline AdvBag] 250 ml IV ONETIME Diltiazem IR [Cardizem] Med 09/10/21 00:00 Ordered 30 mg PO Q6HR Diltiazem [Cardizem] 100 mg Med 09/09/21 14:15 Active Sodium Chloride 0.9% [Normal Saline AdvBag] 100 ml IV NOW Enoxaparin [Lovenox] Med 09/10/21 03:00 Ordered 80 mg SUBCUT Q12H Pantoprazole [ProTONIX] Med 09/09/21 20:15 Ordered 40 mg PO DAILY Remdesivir 100 mg Med 09/10/21 18:45 Active Sodium Chloride 0.9% [Normal Saline AdvBag] 100 ml IV Q24H Sodium Chloride 0.9% [Saline Flush] Med 09/09/21 14:08 Active 10 ml FLUSH ASDIRECTED PRN Sodium Chloride 0.9% [Saline Flush] Med 09/09/21 14:08 Active 2.5 ml FLUSH ASDIRECTED PRN Blood Culture x2 Reflex Set [OM.PC] Stat Oth 09/09/21 15:50 Ordered Saline Lock Insert [OM.PC] Stat Oth 09/09/21 14:08 Ordered Medication Orders Diltiazem HCl (Diltiazem Ir 30 Mg Tab) 30 mg PO Q6HR SHALONDA Enoxaparin Sodium (Enoxaparin 60 Mg/0.6 Ml Syringe) 80 mg SUBCUT Q12H SHALONDA Diltiazem HCl 100 mg/ Sodium (Chloride) 100 mls @ 5 mls/hr IV NOW SHALONDA; Protocol Last Titration: 09/09/21 19:33 Dose: 0 mg/hr, 0 mls/hr Documented by: Titration: 09/09/21 18:45 Dose: 5 mg/hr, 5 mls/hr Documented by: Titration: 09/09/21 15:24 Dose: 10 mg/hr, 10 mls/hr Documented by: Admin: 09/09/21 14:14 Dose: 5 mg/hr, 5 mls/hr Documented by: NILAD Azithromycin 500 mg/ Sodium (Chloride) 250 mls @ 250 mls/hr IV ONETIME SHALONDA Last Admin: 09/09/21 18:31 Dose: 250 mls/hr Documented by: NILDA Remdesivir 100 mg/ Sodium (Chloride) 100 mls @ 100 mls/hr IV Q24H [facility] Stop: 09/13/21 19:44 Pantoprazole Sodium (Pantoprazole 40 Mg Tab.Cr) 40 mg PO DAILY [facility] Sodium Chloride (Sodium Chloride 0.9% 10 Ml Syringe) 10 ml FLUSH ASDIRECTED PRN PRN Reason: Keep Vein Open Last Admin: 09/09/21 14:16 Dose: 10 ml Documented by: NILDA Sodium Chloride (Sodium Chloride 0.9% 2.5 Ml Syringe) 2.5 ml FLUSH ASDIRECTED PRN PRN Reason: Keep Vein Open Last Admin: 09/09/21 14:16 Dose: 2.5 ml Documented by: NILDA Assessment/Plan Comment:: 55 yo male with primary GI symptoms of COVID who presents with a.fib with RVR and is likely dehydrated. COVID: will hold off on dexamethason and remdesivir as he is not hypoxic A.fib: currently controlled with diltiazem drip, will titrate up oral diltiazem and wean off drip as tolerated, Full dose Lovenox has been started.
[2021-09-09] MEDS ORDERED: Iopamidol 755 MG/ML 500 ML Multipack Bottle IVPUSH STA (20:36)
--- NOTE | 2021-09-09 21:17 | CT ---
INDICATION: Supraventricular tachycardia. COVID-19 positive. COMPARISON: Chest radiograph from today. CT of the abdomen and pelvis without contrast from today. TECHNIQUE: CT examination of the chest was performed with the uneventful intravenous administration of 75 cc of Isovue 370 while 1 mm thick axial sections were obtained through the pulmonary arteries. Please note that all CT scans at this facility use dose modulation, iterative reconstruction, and/or weight-based dosing when appropriate to reduce radiation dose to as low as reasonably achievable. FINDINGS: : There is no sign of pulmonary embolism, with normal enhancement and branching of the pulmonary arteries. There are scattered moderately dense crazy paving infiltrates with a peripheral and perihilar distribution consistent with mild COVID-19 pneumonia. There is moderate involvement of the right lower lobe with mild involvement of the rest of the lobes. There is no sign of a pleural effusion. There is moderate bullous disease along the medial aspect of the left upper lobe extending along the aortic arch and superior mediastinum. There is mild centrilobular emphysema elsewhere in the left upper lobe. There is no sign of mediastinal or hilar mass or adenopathy. The heart is mildly enlarged with four-chamber dilatation. There is mild LAD and moderate RCA coronary calcification. There is age appropriate appearance of the thoracic aorta and ascending great vessels. There is no sign of supraclavicular or axillary mass or adenopathy. The visualized superior liver, spleen, pancreas, kidneys, and adrenals are normal in appearance. The osseous structures are normal in appearance for the patient`s age. IMPRESSION: No sign of pulmonary embolism. Findings of mild COVID-19 pneumonia with moderate involvement of the right lower lobe and milder involvement of the rest of the lobes. Moderate peripheral emphysema and mild centrilobular emphysema in the left upper lobe. Mild cardiomegaly. Please note that all CT scans at this facility use dose modulation, iterative reconstruction, and/or weight-based dosing when appropriate to reduce radiation dose to as low as reasonably achievable. Dictated by Carlos Alex MD @ 09/09/2021 9:15:51 PM (Electronically Signed)
[2021-09-09] MEDS: Pantoprazole 40 MG Tab.CR PO SCH (21:39)
[2021-09-10] MEDS: Diltiazem IR 30 MG Tab PO SCH ×5 (02:04→23:23)
[2021-09-10] MEDS ORDERED: Enoxaparin 60 MG/0.6 ML Syringe SUBCUT SCH (03:00)
[2021-09-10] MEDS: Enoxaparin 100 MG/1 ML Syringe SUBCUT SCH ×2 (06:42→18:08)
[2021-09-10] MEDS: Pantoprazole 40 MG Tab.CR PO SCH (08:00)
[2021-09-10 10:54] LABS: BLOOD UREA NITROGEN,BUN 33 mg/dL (7.0-18.0); CARBON DIOXIDE,CO2 23.3 mmol/L (21.0-32.0); CHLORIDE,CL 106 mmol/L (98-107); GLUCOSE RANDOM 143 mg/dL (74-106); POTASSIUM,K 4.4 mmol/L (3.5-5.1); SODIUM,NA 139 mmol/L (136-148)
--- NOTE | 2021-09-10 15:23 | PCM.PN ---
- General Info Date of Service: 09/10/21 - Review of Systems Systems Review Comment:: abdominal pain resolved, reports multiple loose stools, no shortness of breath, no cough - Patient Data Vitals - Most Recent: Last Vital Signs Temp 35.0 C L 09/10/21 12:00 Pulse 66 09/10/21 12:00 Resp 20 09/10/21 12:00 BP 105/64 09/10/21 12:00 Pulse Ox 93 L 09/10/21 12:00 Weight - Most Recent: 77.201 kg I&O - Last 24 Hours: Intake & Output 09/10/21 09/10/21 09/10/21 06:59 14:59 22:59 Intake Total 0 Output Total 0 Balance 0 Lab Results Last 24 Hours: Laboratory Results - last 24 hr 09/09/21 09/09/21 09/09/21 Range/Units 13:55 16:30 19:31 WBC (4.0-11.0) K/uL RBC (4.50-5.90) M/uL Hgb (13.0-17.0) g/dL Hct (38.0-50.0) % MCV (80.0-98.0) fL MCH (27.0-32.0) pg MCHC (31.0-37.0) g/dL RDW Std Deviation (28.0-62.0) fl RDW Coeff of Manish (11.0-15.0) % Plt Count (150-400) K/uL MPV (7.40-12.00) fL Neut % (Auto) (48.0-80.0) % Lymph % (Auto) (16.0-40.0) % Bacon % (Auto) (0.0-15.0) % Eos % (Auto) (0.0-7.0) % Baso % (Auto) (0.0-1.5) % Neut # (Auto) (1.4-5.7) K/uL Lymph # (Auto) (0.6-2.4) K/uL Bacon # (Auto) (0.0-0.8) K/uL Eos # (Auto) (0.0-0.7) K/uL Baso # (Auto) (0.0-0.1) K/uL Nucleated RBC % /100WBC Nucleated RBCs # K/uL Sodium 137 (136-148) mmol/L Potassium 3.9 (3.5-5.1) mmol/L Chloride 106 (98-107) mmol/L Carbon Dioxide 19.2 L (21.0-32.0) mmol/L BUN 37 H (7.0-18.0) mg/dL Creatinine 1.4 H (0.8-1.3) mg/dL Est Cr Clr Drug Dosing 67.23 mL/min Estimated GFR (MDRD) 52.2 ml/min Glucose 155 H (74-106) mg/dL Lactic Acid 1.8 (0.4-2.0) mmol/L Calcium 7.4 L (8.5-10.1) mg/dL Magnesium 2.2 1.8 (1.8-2.4) mg/dL Urine Color Urine Appearance Urine pH (5.0-8.0) Ur Specific [facility] (1.001-1.035) Urine Protein (NEGATIVE) mg/dL Urine Glucose (UA) (NEGATIVE) mg/dL Urine Ketones (NEGATIVE) mg/dL Urine Occult Blood (NEGATIVE) Urine Nitrite (NEGATIVE) Urine Bilirubin (NEGATIVE) Urine Urobilinogen (<2.0) EU/dL Ur Leukocyte Esterase (NEGATIVE) U Hyaline Cast (Auto) (0-2/LPF) Urine RBC (0-2/HPF) Urine WBC (0-5/HPF) Ur Epithelial Cells (NONE-FEW) Urine Bacteria (NEGATIVE) Urine Mucus (NONE-MOD) 09/09/21 09/10/21 09/10/21 Range/Units 20:30 10:10 10:10 WBC 3.47 L (4.0-11.0) K/uL RBC 5.02 (4.50-5.90) M/uL Hgb 15.5 (13.0-17.0) g/dL Hct 45.0 (38.0-50.0) % MCV 89.6 (80.0-98.0) fL MCH 30.9 (27.0-32.0) pg MCHC 34.4 (31.0-37.0) g/dL RDW Std Deviation 43.6 (28.0-62.0) fl RDW Coeff of Manish 13 (11.0-15.0) % Plt Count 126 L (150-400) K/uL MPV 10.50 (7.40-12.00) fL Neut % (Auto) 67.1 (48.0-80.0) % Lymph % (Auto) 27.1 (16.0-40.0) % Bacon % (Auto) 5.5 (0.0-15.0) % Eos % (Auto) 0.0 (0.0-7.0) % Baso % (Auto) 0.3 (0.0-1.5) % Neut # (Auto) 2.3 (1.4-5.7) K/uL Lymph # (Auto) 0.9 (0.6-2.4) K/uL Bacon # (Auto) 0.2 (0.0-0.8) K/uL Eos # (Auto) 0.0 (0.0-0.7) K/uL Baso # (Auto) 0.0 (0.0-0.1) K/uL Nucleated RBC % 0.0 /100WBC Nucleated RBCs # 0 K/uL Sodium 139 (136-148) mmol/L Potassium 4.4 (3.5-5.1) mmol/L Chloride 106 (98-107) mmol/L Carbon Dioxide 23.3 (21.0-32.0) mmol/L BUN 33 H (7.0-18.0) mg/dL Creatinine 1.1 (0.8-1.3) mg/dL Est Cr Clr Drug Dosing 80.91 mL/min Estimated GFR (MDRD) > 60.0 ml/min Glucose 143 H (74-106) mg/dL Lactic Acid (0.4-2.0) mmol/L Calcium 8.7 (8.5-10.1) mg/dL Magnesium (1.8-2.4) mg/dL Urine Color YELLOW Urine Appearance SLT CLOUDY Urine pH 5.5 (5.0-8.0) Ur Specific [facility] >= 1.030 (1.001-1.035) Urine Protein 100 H (NEGATIVE) mg/dL Urine Glucose (UA) NEGATIVE (NEGATIVE) mg/dL Urine Ketones 15 H (NEGATIVE) mg/dL Urine Occult Blood MODERATE H (NEGATIVE) Urine Nitrite NEGATIVE (NEGATIVE) Urine Bilirubin NEGATIVE (NEGATIVE) Urine Urobilinogen 0.2 (<2.0) EU/dL Ur Leukocyte Esterase NEGATIVE (NEGATIVE) U Hyaline Cast (Auto) 1-4 (0-2/LPF) Urine RBC 0-2 (0-2/HPF) Urine WBC 0-2 (0-5/HPF) Ur Epithelial Cells OCCASIONAL (NONE-FEW) Urine Bacteria FEW (NEGATIVE) Urine Mucus LIGHT (NONE-MOD) [place] Results Last 24 Hours: Microbiology 09/10/21 11:45 C. difficile Antigen & Toxins A,B - Final Stool / Feces Med Orders - Current: Current Medications Diltiazem HCl (Diltiazem Ir 30 Mg Tab) 30 mg PO Q6HR [facility] Last Admin: 09/10/21 11:59 Dose: 30 mg Documented by: Enoxaparin Sodium (Enoxaparin 100 Mg/1 Ml Syringe) 80 mg SUBCUT Q12H [facility] Last Admin: 09/10/21 06:42 Dose: 80 mg Documented by: Pantoprazole Sodium (Pantoprazole 40 Mg Tab.Cr) 40 mg PO DAILY [facility] Last Admin: 09/10/21 08:00 Dose: 40 mg Documented by: Sodium Chloride (Sodium Chloride 0.9% 10 Ml Syringe) 10 ml FLUSH ASDIRECTED PRN PRN Reason: Keep Vein Open Last Admin: 09/09/21 14:16 Dose: 10 ml Documented by: Sodium Chloride (Sodium Chloride 0.9% 2.5 Ml Syringe) 2.5 ml FLUSH ASDIRECTED PRN PRN Reason: Keep Vein Open Last Admin: 09/09/21 14:16 Dose: 2.5 ml Documented by: Discontinued Medications Acetaminophen (Acetaminophen 325 Mg Tab) 650 mg PO NOW ONE Stop: 09/09/21 17:30 Last Admin: 09/09/21 18:08 Dose: 650 mg Documented by: Adenosine (Adenosine 6 Mg/2 Ml Sdv) Confirm Administered Dose 12 mg .ROUTE .STK- MED ONE Stop: 09/09/21 13:59 Last Admin: 09/09/21 14:16 Dose: Not Given Documented by: Adenosine (Adenosine 6 Mg/2 Ml Sdv) 12 mg IVPUSH NOW ONE Stop: 09/09/21 14:06 Last Admin: 09/09/21 14:14 Dose: 12 mg Documented by: Aspirin (Aspirin 81 Mg Tab.Chew) 324 mg PO ONETIME ONE Stop: 09/09/21 14:09 Last Admin: 09/09/21 14:15 Dose: 324 mg Documented by: Dexamethasone (Dexamethasone 10 Mg/Ml Sdv) 10 mg IVPUSH ONETIME ONE Stop: 09/09/21 16:15 Last Admin: 09/09/21 17:21 Dose: 10 mg Documented by: Diltiazem HCl (Diltiazem 25 Mg/5 Ml Sdv) 20 mg IVPUSH ONETIME ONE Stop: 09/09/21 14:08 Last Admin: 09/09/21 14:15 Dose: 20 mg Documented by: Diltiazem HCl (Diltiazem 180 Mg Cap.Cd) 180 mg PO ONETIME ONE Stop: 09/09/21 16:24 Last Admin: 09/09/21 17:21 Dose: 180 mg Documented by: Diltiazem HCl (Diltiazem Ir 30 Mg Tab) 30 mg PO ONETIME ONE Stop: 09/09/21 18:58 Last Admin: 09/09/21 19:29 Dose: 30 mg Documented by: Enoxaparin Sodium (Enoxaparin 100 Mg/1 Ml Syringe) 80 mg 1 mg/kg (80 mg) SUBCUT ONETIME STA Stop: 09/09/21 14:12 Last Admin: 09/09/21 15:01 Dose: 80 mg Documented by: Enoxaparin Sodium (Enoxaparin 60 Mg/0.6 Ml Syringe) 80 mg SUBCUT Q12H [facility] Last Admin: 09/10/21 04:34 Dose: Not Given Documented by: Diltiazem HCl 100 mg/ Sodium (Chloride) 100 mls @ 5 mls/hr IV NOW [facility]; Protocol Last Titration: 09/09/21 19:33 Dose: 0 mg/hr, 0 mls/hr Documented by: Sodium Chloride (Normal Saline) 1,000 mls @ 999 mls/hr IV .Bolus ONE Stop: 09/09/21 15:08 Last Admin: 09/09/21 14:15 Dose: 999 mls/hr Documented by: Ceftriaxone Sodium/Dextrose 1 (gm/ Premix) 50 mls @ 100 mls/hr IV ONETIME ONE Stop: 09/09/21 16:19 Last Admin: 09/09/21 16:11 Dose: 100 mls/hr Documented by: Azithromycin 500 mg/ Sodium (Chloride) 250 mls @ 250 mls/hr IV ONETIME [facility] Last Admin: 09/09/21 18:31 Dose: 250 mls/hr Documented by: Remdesivir 200 mg/ Sodium (Chloride) 250 mls @ 250 mls/hr IV ONETIME ONE Stop: 09/09/21 16:15 Last Admin: 09/09/21 17:22 Dose: 250 mls/hr Documented by: Remdesivir 200 mg/ Sodium (Chloride) 250 mls @ 250 mls/hr IV ONETIME ONE Stop: 09/09/21 17:59 Last Admin: 09/09/21 17:39 Dose: Not Given Documented by: Lactated Ringer's (Ringers, Lactated) 1,000 mls @ 999 mls/hr IV .BOLUS ONE Stop: 09/09/21 18:28 Last Admin: 09/09/21 18:50 Dose: 999 mls/hr Documented by: Sodium Chloride (Normal Saline) 1,000 mls @ 999 mls/hr IV .Bolus ONE Stop: 09/09/21 18:58 Last Admin: 09/09/21 13:50 Dose: 999 mls/hr Documented by: Remdesivir 100 mg/ Sodium (Chloride) 100 mls @ 100 mls/hr IV Q24H [facility] Stop: 09/13/21 19:44 Iopamidol (Iopamidol 755 Mg/Ml 500 Ml Multipack Bottle) 75 ml IVPUSH ONETIME STA Stop: 09/09/21 20:37 Last Admin: 09/09/21 20:37 Dose: 75 ml Documented by: Ketorolac Tromethamine (Ketorolac 30 Mg/Ml Sdv) 15 mg IVPUSH ONETIME ONE Stop: 09/09/21 18:39 Last Admin: 09/09/21 18:51 Dose: 15 mg Documented by: - Exam General: Alert, Oriented Neck: Supple Lungs: Clear to Auscultation, Normal Respiratory Effort Cardiovascular: Regular Rate, Regular Rhythm GI/Abdominal Exam: Normal Bowel Sounds, Soft, Non-Tender Extremities: Non-Tender, No Pedal Edema Skin: Warm, Dry, Intact Neurological: No New Focal Deficit - Patient Data Lab Results Last 24 hrs: Laboratory Results - last 24 hr 09/09/21 09/09/21 09/09/21 Range/Units 13:55 16:30 19:31 WBC (4.0-11.0) K/uL RBC (4.50-5.90) M/uL Hgb (13.0-17.0) g/dL Hct (38.0-50.0) % MCV (80.0-98.0) fL MCH (27.0-32.0) pg MCHC (31.0-37.0) g/dL RDW Std Deviation (28.0-62.0) fl RDW Coeff of Manish (11.0-15.0) % Plt Count (150-400) K/uL MPV (7.40-12.00) fL Neut % (Auto) (48.0-80.0) % Lymph % (Auto) (16.0-40.0) % Bacon % (Auto) (0.0-15.0) % Eos % (Auto) (0.0-7.0) % Baso % (Auto) (0.0-1.5) % Neut # (Auto) (1.4-5.7) K/uL Lymph # (Auto) (0.6-2.4) K/uL Bacon # (Auto) (0.0-0.8) K/uL Eos # (Auto) (0.0-0.7) K/uL Baso # (Auto) (0.0-0.1) K/uL Nucleated RBC % /100WBC Nucleated RBCs # K/uL Sodium 137 (136-148) mmol/L Potassium 3.9 (3.5-5.1) mmol/L Chloride 106 (98-107) mmol/L Carbon Dioxide 19.2 L (21.0-32.0) mmol/L BUN 37 H (7.0-18.0) mg/dL Creatinine 1.4 H (0.8-1.3) mg/dL Est Cr Clr Drug Dosing 67.23 mL/min Estimated GFR (MDRD) 52.2 ml/min Glucose 155 H (74-106) mg/dL Lactic Acid 1.8 (0.4-2.0) mmol/L Calcium 7.4 L (8.5-10.1) mg/dL Magnesium 2.2 1.8 (1.8-2.4) mg/dL Urine Color Urine Appearance Urine pH (5.0-8.0) Ur Specific [facility] (1.001-1.035) Urine Protein (NEGATIVE) mg/dL Urine Glucose (UA) (NEGATIVE) mg/dL Urine Ketones (NEGATIVE) mg/dL Urine Occult Blood (NEGATIVE) Urine Nitrite (NEGATIVE) Urine Bilirubin (NEGATIVE) Urine Urobilinogen (<2.0) EU/dL Ur Leukocyte Esterase (NEGATIVE) U Hyaline Cast (Auto) (0-2/LPF) Urine RBC (0-2/HPF) Urine WBC (0-5/HPF) Ur Epithelial Cells (NONE-FEW) Urine Bacteria (NEGATIVE) Urine Mucus (NONE-MOD) 09/09/21 09/10/21 09/10/21 Range/Units 20:30 10:10 10:10 WBC 3.47 L (4.0-11.0) K/uL RBC 5.02 (4.50-5.90) M/uL Hgb 15.5 (13.0-17.0) g/dL Hct 45.0 (38.0-50.0) % MCV 89.6 (80.0-98.0) fL MCH 30.9 (27.0-32.0) pg MCHC 34.4 (31.0-37.0) g/dL RDW Std Deviation 43.6 (28.0-62.0) fl RDW Coeff of Manish 13 (11.0-15.0) % Plt Count 126 L (150-400) K/uL MPV 10.50 (7.40-12.00) fL Neut % (Auto) 67.1 (48.0-80.0) % Lymph % (Auto) 27.1 (16.0-40.0) % Bacon % (Auto) 5.5 (0.0-15.0) % Eos % (Auto) 0.0 (0.0-7.0) % Baso % (Auto) 0.3 (0.0-1.5) % Neut # (Auto) 2.3 (1.4-5.7) K/uL Lymph # (Auto) 0.9 (0.6-2.4) K/uL Bacon # (Auto) 0.2 (0.0-0.8) K/uL Eos # (Auto) 0.0 (0.0-0.7) K/uL Baso # (Auto) 0.0 (0.0-0.1) K/uL Nucleated RBC % 0.0 /100WBC Nucleated RBCs # 0 K/uL Sodium 139 (136-148) mmol/L Potassium 4.4 (3.5-5.1) mmol/L Chloride 106 (98-107) mmol/L Carbon Dioxide 23.3 (21.0-32.0) mmol/L BUN 33 H (7.0-18.0) mg/dL Creatinine 1.1 (0.8-1.3) mg/dL Est Cr Clr Drug Dosing 80.91 mL/min Estimated GFR (MDRD) > 60.0 ml/min Glucose 143 H (74-106) mg/dL Lactic Acid (0.4-2.0) mmol/L Calcium 8.7 (8.5-10.1) mg/dL Magnesium (1.8-2.4) mg/dL Urine Color YELLOW Urine Appearance SLT CLOUDY Urine pH 5.5 (5.0-8.0) Ur Specific [facility] >= 1.030 (1.001-1.035) Urine Protein 100 H (NEGATIVE) mg/dL Urine Glucose (UA) NEGATIVE (NEGATIVE) mg/dL Urine Ketones 15 H (NEGATIVE) mg/dL Urine Occult Blood MODERATE H (NEGATIVE) Urine Nitrite NEGATIVE (NEGATIVE) Urine Bilirubin NEGATIVE (NEGATIVE) Urine Urobilinogen 0.2 (<2.0) EU/dL Ur Leukocyte Esterase NEGATIVE (NEGATIVE) U Hyaline Cast (Auto) 1-4 (0-2/LPF) Urine RBC 0-2 (0-2/HPF) Urine WBC 0-2 (0-5/HPF) Ur Epithelial Cells OCCASIONAL (NONE-FEW) Urine Bacteria FEW (NEGATIVE) Urine Mucus LIGHT (NONE-MOD) Result Diagrams: 09/10/21 10:10 09/10/21 10:10 [place] Results Last 24 hrs: Microbiology 09/10/21 11:45 C. difficile Antigen & Toxins A,B - Final Stool / Feces Sepsis Event Note - Evaluation Sepsis Screening Result: No Definite Risk - Focused Exam Vital Signs: Vital Signs Temp Pulse Resp BP Pulse Ox 09/10/21 12:00 35.0 C L 66 20 105/64 93 L 09/10/21 08:28 35.0 C L 58 L 20 96/59 L 94 L 09/10/21 04:34 57 L 16 91/64 94 L - Problem List & Annotations (1) COVID-19 SNOMED Code(s): 848515441 Code(s): U07.1 - COVID-19 Status: Acute Current Visit: Yes (2) Dehydration SNOMED Code(s): 24240718 Code(s): E86.0 - DEHYDRATION Status: Acute Current Visit: Yes (3) JANIA (acute kidney injury) SNOMED Code(s): 16070183, 14291285 Code(s): N17.9 - ACUTE KIDNEY FAILURE, UNSPECIFIED Status: Acute Current Visit: Yes (4) Atrial fibrillation with RVR SNOMED Code(s): 896621752225968 Code(s): I48.91 - UNSPECIFIED ATRIAL FIBRILLATION Status: Acute Current Visit: Yes - Problem List Review Problem List Initiated/Reviewed/Updated: Yes - My Orders Last 24 Hours: My Active Orders 09/09/21 20:15 Pantoprazole [ProTONIX] 40 mg PO DAILY 09/10/21 00:00 Diltiazem IR [Cardizem] 30 mg PO Q6HR 09/10/21 00:20 Cardiac Monitoring [RC] . DIRECTED 09/10/21 06:00 Daily Weight [Height and Weight] [RC] DAILY Intake and Output Strict [RC] DAILY Enoxaparin [Lovenox] 80 mg SUBCUT Q12H 09/10/21 Breakfast Regular Diet [DIET] - Plan Plan:: 55 yo male with primary GI symptoms of COVID who presents with a.fib with RVR and is likely dehydrated. COVID: GI symptoms improving, still reports diarrhea, will treat supportively A.fib: continue Lovenox, weaned off diltiazem drip, on PO diltiazem
[2021-09-10] MEDS ORDERED: REMDESIVIR 100 MG in Sodium Chloride 0.9% 100 ML IV SCH (18:45)
[2021-09-10] MEDS ORDERED: Acetaminophen 325 MG Tab PO PRN (21:25)
[2021-09-11] MEDS: Enoxaparin 100 MG/1 ML Syringe SUBCUT SCH ×2 (06:09→17:41)
[2021-09-11] MEDS: Diltiazem IR 30 MG Tab PO SCH (06:10)
[2021-09-11] MEDS: Pantoprazole 40 MG Tab.CR PO SCH (09:06)
[2021-09-11] MEDS ORDERED: Loperamide 2 MG Cap PO ONE (11:49)
--- NOTE | 2021-09-11 11:53 | PCM.PN ---
- General Info Date of Service: 09/11/21 - Review of Systems Systems Review Comment:: still reports abdominal discomfort and loose stools - Patient Data Vitals - Most Recent: Last Vital Signs Temp 35.7 C L 09/11/21 07:00 Pulse 72 09/11/21 07:00 Resp 16 09/11/21 07:00 BP 96/51 L 09/11/21 07:00 Pulse Ox 93 L 09/11/21 07:00 Weight - Most Recent: 75.75 kg I&O - Last 24 Hours: Intake & Output 09/10/21 09/11/21 09/11/21 22:59 06:59 14:59 Intake Total 700 Output Total 275 Balance 425 [place] Results Last 24 Hours: Microbiology 09/10/21 11:45 Shiga Toxin I & II - Final Stool / Feces 09/09/21 16:23 Aerobic Blood Culture - Preliminary Blood - Venous NO GROWTH AFTER 1 DAY Anaerobic Blood Culture - Preliminary NO GROWTH AFTER 1 DAY 09/09/21 16:30 Aerobic Blood Culture - Preliminary Blood - Venous - Lab Draw NO GROWTH AFTER 1 DAY Anaerobic Blood Culture - Preliminary NO GROWTH AFTER 1 DAY 09/10/21 11:45 C. difficile Antigen & Toxins A,B - Final Stool / Feces Med Orders - Current: Current Medications Acetaminophen (Acetaminophen 325 Mg Tab) 650 mg PO Q4H PRN PRN Reason: Pain Last Admin: 09/10/21 21:49 Dose: 650 mg Documented by: Enoxaparin Sodium (Enoxaparin 100 Mg/1 Ml Syringe) 80 mg SUBCUT Q12H [facility] Last Admin: 09/11/21 06:09 Dose: 80 mg Documented by: Pantoprazole Sodium (Pantoprazole 40 Mg Tab.Cr) 40 mg PO DAILY [facility] Last Admin: 09/11/21 09:06 Dose: 40 mg Documented by: Sodium Chloride (Sodium Chloride 0.9% 10 Ml Syringe) 10 ml FLUSH ASDIRECTED PRN PRN Reason: Keep Vein Open Last Admin: 09/09/21 14:16 Dose: 10 ml Documented by: Sodium Chloride (Sodium Chloride 0.9% 2.5 Ml Syringe) 2.5 ml FLUSH ASDIRECTED PRN PRN Reason: Keep Vein Open Last Admin: 09/09/21 14:16 Dose: 2.5 ml Documented by: Discontinued Medications Acetaminophen (Acetaminophen 325 Mg Tab) 650 mg PO NOW ONE Stop: 09/09/21 17:30 Last Admin: 09/09/21 18:08 Dose: 650 mg Documented by: Adenosine (Adenosine 6 Mg/2 Ml Sdv) Confirm Administered Dose 12 mg .ROUTE .STK- MED ONE Stop: 09/09/21 13:59 Last Admin: 09/09/21 14:16 Dose: Not Given Documented by: Adenosine (Adenosine 6 Mg/2 Ml Sdv) 12 mg IVPUSH NOW ONE Stop: 09/09/21 14:06 Last Admin: 09/09/21 14:14 Dose: 12 mg Documented by: Aspirin (Aspirin 81 Mg Tab.Chew) 324 mg PO ONETIME ONE Stop: 09/09/21 14:09 Last Admin: 09/09/21 14:15 Dose: 324 mg Documented by: Dexamethasone (Dexamethasone 10 Mg/Ml Sdv) 10 mg IVPUSH ONETIME ONE Stop: 09/09/21 16:15 Last Admin: 09/09/21 17:21 Dose: 10 mg Documented by: Diltiazem HCl (Diltiazem 25 Mg/5 Ml Sdv) 20 mg IVPUSH ONETIME ONE Stop: 09/09/21 14:08 Last Admin: 09/09/21 14:15 Dose: 20 mg Documented by: Diltiazem HCl (Diltiazem 180 Mg Cap.Cd) 180 mg PO ONETIME ONE Stop: 09/09/21 16:24 Last Admin: 09/09/21 17:21 Dose: 180 mg Documented by: Diltiazem HCl (Diltiazem Ir 30 Mg Tab) 30 mg PO ONETIME ONE Stop: 09/09/21 18:58 Last Admin: 09/09/21 19:29 Dose: 30 mg Documented by: Diltiazem HCl (Diltiazem Ir 30 Mg Tab) 30 mg PO Q6HR [facility] Last Admin: 09/11/21 06:10 Dose: 30 mg Documented by: Enoxaparin Sodium (Enoxaparin 100 Mg/1 Ml Syringe) 80 mg 1 mg/kg (80 mg) SUBCUT ONETIME STA Stop: 09/09/21 14:12 Last Admin: 09/09/21 15:01 Dose: 80 mg Documented by: Enoxaparin Sodium (Enoxaparin 60 Mg/0.6 Ml Syringe) 80 mg SUBCUT Q12H [facility] Last Admin: 09/10/21 04:34 Dose: Not Given Documented by: Diltiazem HCl 100 mg/ Sodium (Chloride) 100 mls @ 5 mls/hr IV NOW [facility]; Protocol Last Titration: 09/09/21 19:33 Dose: 0 mg/hr, 0 mls/hr Documented by: Sodium Chloride (Normal Saline) 1,000 mls @ 999 mls/hr IV .Bolus ONE Stop: 09/09/21 15:08 Last Admin: 09/09/21 14:15 Dose: 999 mls/hr Documented by: Ceftriaxone Sodium/Dextrose 1 (gm/ Premix) 50 mls @ 100 mls/hr IV ONETIME ONE Stop: 09/09/21 16:19 Last Admin: 09/09/21 16:11 Dose: 100 mls/hr Documented by: Azithromycin 500 mg/ Sodium (Chloride) 250 mls @ 250 mls/hr IV ONETIME [facility] Last Admin: 09/09/21 18:31 Dose: 250 mls/hr Documented by: Remdesivir 200 mg/ Sodium (Chloride) 250 mls @ 250 mls/hr IV ONETIME ONE Stop: 09/09/21 16:15 Last Admin: 09/09/21 17:22 Dose: 250 mls/hr Documented by: Remdesivir 200 mg/ Sodium (Chloride) 250 mls @ 250 mls/hr IV ONETIME ONE Stop: 09/09/21 17:59 Last Admin: 09/09/21 17:39 Dose: Not Given Documented by: Lactated Ringer's (Ringers, Lactated) 1,000 mls @ 999 mls/hr IV .BOLUS ONE Stop: 09/09/21 18:28 Last Admin: 09/09/21 18:50 Dose: 999 mls/hr Documented by: Sodium Chloride (Normal Saline) 1,000 mls @ 999 mls/hr IV .Bolus ONE Stop: 09/09/21 18:58 Last Admin: 09/09/21 13:50 Dose: 999 mls/hr Documented by: Remdesivir 100 mg/ Sodium (Chloride) 100 mls @ 100 mls/hr IV Q24H [facility] Stop: 09/13/21 19:44 Iopamidol (Iopamidol 755 Mg/Ml 500 Ml Multipack Bottle) 75 ml IVPUSH ONETIME STA Stop: 09/09/21 20:37 Last Admin: 09/09/21 20:37 Dose: 75 ml Documented by: Ketorolac Tromethamine (Ketorolac 30 Mg/Ml Sdv) 15 mg IVPUSH ONETIME ONE Stop: 09/09/21 18:39 Last Admin: 09/09/21 18:51 Dose: 15 mg Documented by: - Exam General: Alert, Oriented Neck: Supple Lungs: Clear to Auscultation, Normal Respiratory Effort Cardiovascular: Regular Rate, Regular Rhythm GI/Abdominal Exam: Soft, Non-Tender, No Distention Extremities: Non-Tender, No Pedal Edema Skin: Warm, Dry, Intact Neurological: No New Focal Deficit - Patient Data Result Diagrams: 09/10/21 10:10 09/10/21 10:10 [place] Results Last 24 hrs: Microbiology 09/10/21 11:45 Shiga Toxin I & II - Final Stool / Feces 09/09/21 16:23 Aerobic Blood Culture - Preliminary Blood - Venous NO GROWTH AFTER 1 DAY Anaerobic Blood Culture - Preliminary NO GROWTH AFTER 1 DAY 09/09/21 16:30 Aerobic Blood Culture - Preliminary Blood - Venous - Lab Draw NO GROWTH AFTER 1 DAY Anaerobic Blood Culture - Preliminary NO GROWTH AFTER 1 DAY 09/10/21 11:45 C. difficile Antigen & Toxins A,B - Final Stool / Feces Sepsis Event Note - Evaluation Sepsis Screening Result: No Definite Risk - Focused Exam Vital Signs: Vital Signs Temp Pulse Resp BP Pulse Ox 09/11/21 07:00 35.7 C L 72 16 96/51 L 93 L 09/11/21 03:07 35.7 C L 70 18 100/59 L 95 09/11/21 00:18 100/58 L - Problem List & Annotations (1) COVID-19 SNOMED Code(s): 372660163 Code(s): U07.1 - COVID-19 Status: Acute Current Visit: Yes (2) Dehydration SNOMED Code(s): 85915018 Code(s): E86.0 - DEHYDRATION Status: Acute Current Visit: Yes (3) JANIA (acute kidney injury) SNOMED Code(s): 38465942, 21557948 Code(s): N17.9 - ACUTE KIDNEY FAILURE, UNSPECIFIED Status: Acute Current Visit: Yes (4) Atrial fibrillation with RVR SNOMED Code(s): 884883207092138 Code(s): I48.91 - UNSPECIFIED ATRIAL FIBRILLATION Status: Acute Current Visit: Yes - Problem List Review Problem List Initiated/Reviewed/Updated: Yes - My Orders Last 24 Hours: My Active Orders 09/10/21 21:25 Acetaminophen [TylenoL] 650 mg PO Q4H PRN 09/11/21 11:48 CBC WITH AUTO DIFF [HEME] Routine COMPREHENSIVE METABOLIC PN,CMP [CHEM] Routine - Plan Plan:: 55 yo male with primary GI symptoms of COVID who presents with a.fib with RVR and is likely dehydrated. COVID: will hold off on dexamethason and remdesivir as he is not hypoxic A.fib: continue lovenox, will hold diltiazem due to lower blood pressures, may not need rate controlling meds as acute illness is improving
[2021-09-11 13:30] LABS: BLOOD UREA NITROGEN,BUN 25 mg/dL (7.0-18.0); CHLORIDE,CL 109 mmol/L (98-107); GLUCOSE RANDOM 162 mg/dL (74-106); POTASSIUM,K 3.4 mmol/L (3.5-5.1); SODIUM,NA 143 mmol/L (136-148)
[2021-09-12] MEDS: Enoxaparin 100 MG/1 ML Syringe SUBCUT SCH (06:36)
[2021-09-12] MEDS: Pantoprazole 40 MG Tab.CR PO SCH (09:41)
--- NOTE | 2021-09-12 15:41 | PCM.DCSUM1 ---
Discharge Summary - Discharge Data Discharge Date: 09/12/21 Discharge Disposition: Home, Self-Care 01 Condition: Stable - Referral to Home Health Primary Care Physician: PCP None - Discharge Diagnosis/Problem(s) (1) COVID-19 SNOMED Code(s): 715461968 ICD Code: U07.1 - COVID-19 Status: Acute Current Visit: Yes (2) Dehydration SNOMED Code(s): 07871137 ICD Code: E86.0 - DEHYDRATION Status: Acute Current Visit: Yes (3) JANIA (acute kidney injury) SNOMED Code(s): 20418868, 06672727 ICD Code: N17.9 - ACUTE KIDNEY FAILURE, UNSPECIFIED Status: Acute Current Visit: Yes (4) Atrial fibrillation with RVR SNOMED Code(s): 496359126801224 ICD Code: I48.91 - UNSPECIFIED ATRIAL FIBRILLATION Status: Acute Current Visit: Yes - Patient Summary/Data Hospital Course: 55 yo male who presents with ten days of abdominal pain and diarrhea. He has not eating much and feels dehydrated. He also reports fevers and mild nonproductive cough. He was seen in the ED and noted to have atrial fibrillation with RVR. He reports a history of a.fib but has not been on any medications for it. He had been on anticoagulation but since he has not seen his PCP in a while they stopped prescribing it to him. CT scan of the abdomen was unremarkable but did reports bibasilar lung infiltrates. He was started on a diltiazem drip followed by oral diltiazem. He was given IV fluids as it was though he was dehydrated. He was monitored in the hospital and he was weened off the diltiazem drip and his oral diltiazem drip was discontinued as well and his heart rate was still controlled. His diarrhea and abdominal pain did improve After discussing anticoagulation for his atrial fibrillation he preferred to go back on Eliquis. Patient was discharged home. - Patient Instructions Diet: Regular Diet as Tolerated Activity: As Tolerated Notify Provider of: Fever, Increased Pain, Nausea and/or Vomiting - Discharge Plan Prescriptions/Med Rec: Apixaban [Eliquis] 5 mg PO BID #60 tablet Home Medications: Home Meds Apixaban [Eliquis] 5 mg PO BID #60 tablet 09/12/21 [Rx] Patient Handouts: Acute Kidney Injury, Adult, COVID-19 Frequently Asked Questions, COVID-19 Vaccine Information, Dehydration, Adult, [id number], COVID-19: How to Protect Yourself and Others - CDC, Atrial Fibrillation, [id number] Referrals: PCP,None [Primary Care Provider] - - Discharge Summary/Plan Comment DC Time >30 min.: No Total # of Minutes for Discharge Time: 15 - Patient Data Vitals - Most Recent: Last Vital Signs Temp 36.4 C 09/12/21 07:00 Pulse 76 09/12/21 07:00 Resp 18 09/12/21 07:00 BP 109/71 09/12/21 07:00 Pulse Ox 93 L 09/12/21 07:00 Weight - Most Recent: 75.07 kg EDUARDO Results - Last 24 hrs: Microbiology 09/10/21 11:45 Stool Culture - Preliminary Stool / Feces Shiga Toxin I & II - Final 09/09/21 16:23 Aerobic Blood Culture - Preliminary Blood - Venous NO GROWTH AFTER 2 DAYS Anaerobic Blood Culture - Preliminary NO GROWTH AFTER 2 DAYS 09/09/21 16:30 Aerobic Blood Culture - Preliminary Blood - Venous - Lab Draw NO GROWTH AFTER 2 DAYS Anaerobic Blood Culture - Preliminary NO GROWTH AFTER 2 DAYS Med Orders - Current: Current Medications Acetaminophen (Acetaminophen 325 Mg Tab) 650 mg PO Q4H PRN PRN Reason: Pain Last Admin: 09/10/21 21:49 Dose: 650 mg Documented by: Enoxaparin Sodium (Enoxaparin 100 Mg/1 Ml Syringe) 80 mg SUBCUT Q12H [facility] Last Admin: 09/12/21 06:36 Dose: 80 mg Documented by: Pantoprazole Sodium (Pantoprazole 40 Mg Tab.Cr) 40 mg PO DAILY [facility] Last Admin: 09/12/21 09:41 Dose: 40 mg Documented by: Sodium Chloride (Sodium Chloride 0.9% 10 Ml Syringe) 10 ml FLUSH ASDIRECTED PRN PRN Reason: Keep Vein Open Last Admin: 09/09/21 14:16 Dose: 10 ml Documented by: Sodium Chloride (Sodium Chloride 0.9% 2.5 Ml Syringe) 2.5 ml FLUSH ASDIRECTED PRN PRN Reason: Keep Vein Open Last Admin: 09/09/21 14:16 Dose: 2.5 ml Documented by: Discontinued Medications Acetaminophen (Acetaminophen 325 Mg Tab) 650 mg PO NOW ONE Stop: 09/09/21 17:30 Last Admin: 09/09/21 18:08 Dose: 650 mg Documented by: Adenosine (Adenosine 6 Mg/2 Ml Sdv) Confirm Administered Dose 12 mg .ROUTE .STK- MED ONE Stop: 09/09/21 13:59 Last Admin: 09/09/21 14:16 Dose: Not Given Documented by: Adenosine (Adenosine 6 Mg/2 Ml Sdv) 12 mg IVPUSH NOW ONE Stop: 09/09/21 14:06 Last Admin: 09/09/21 14:14 Dose: 12 mg Documented by: Aspirin (Aspirin 81 Mg Tab.Chew) 324 mg PO ONETIME ONE Stop: 09/09/21 14:09 Last Admin: 09/09/21 14:15 Dose: 324 mg Documented by: Dexamethasone (Dexamethasone 10 Mg/Ml Sdv) 10 mg IVPUSH ONETIME ONE Stop: 09/09/21 16:15 Last Admin: 09/09/21 17:21 Dose: 10 mg Documented by: Diltiazem HCl (Diltiazem 25 Mg/5 Ml Sdv) 20 mg IVPUSH ONETIME ONE Stop: 09/09/21 14:08 Last Admin: 09/09/21 14:15 Dose: 20 mg Documented by: Diltiazem HCl (Diltiazem 180 Mg Cap.Cd) 180 mg PO ONETIME ONE Stop: 09/09/21 16:24 Last Admin: 09/09/21 17:21 Dose: 180 mg Documented by: Diltiazem HCl (Diltiazem Ir 30 Mg Tab) 30 mg PO ONETIME ONE Stop: 09/09/21 18:58 Last Admin: 09/09/21 19:29 Dose: 30 mg Documented by: Diltiazem HCl (Diltiazem Ir 30 Mg Tab) 30 mg PO Q6HR [facility] Last Admin: 09/11/21 06:10 Dose: 30 mg Documented by: Enoxaparin Sodium (Enoxaparin 100 Mg/1 Ml Syringe) 80 mg 1 mg/kg (80 mg) SUBCUT ONETIME STA Stop: 09/09/21 14:12 Last Admin: 09/09/21 15:01 Dose: 80 mg Documented by: Enoxaparin Sodium (Enoxaparin 60 Mg/0.6 Ml Syringe) 80 mg SUBCUT Q12H [facility]ON[facility] Last Admin: 09/10/21 04:34 Dose: Not Given Documented by: Diltiazem HCl 100 mg/ Sodium (Chloride) 100 mls @ 5 mls/hr IV NOW SHALONDA; Protocol Last Titration: 09/09/21 19:33 Dose: 0 mg/hr, 0 mls/hr Documented by: Sodium Chloride (Normal Saline) 1,000 mls @ 999 mls/hr IV .Bolus ONE Stop: 09/09/21 15:08 Last Admin: 09/09/21 14:15 Dose: 999 mls/hr Documented by: Ceftriaxone Sodium/Dextrose 1 (gm/ Premix) 50 mls @ 100 mls/hr IV ONETIME ONE Stop: 09/09/21 16:19 Last Admin: 09/09/21 16:11 Dose: 100 mls/hr Documented by: Azithromycin 500 mg/ Sodium (Chloride) 250 mls @ 250 mls/hr IV ONETIME [facility]ON[facility] Last Admin: 09/09/21 18:31 Dose: 250 mls/hr Documented by: Remdesivir 200 mg/ Sodium (Chloride) 250 mls @ 250 mls/hr IV ONETIME ONE Stop: 09/09/21 16:15 Last Admin: 09/09/21 17:22 Dose: 250 mls/hr Documented by: Remdesivir 200 mg/ Sodium (Chloride) 250 mls @ 250 mls/hr IV ONETIME ONE Stop: 09/09/21 17:59 Last Admin: 09/09/21 17:39 Dose: Not Given Documented by: Lactated Ringer's (Ringers, Lactated) 1,000 mls @ 999 mls/hr IV .BOLUS ONE Stop: 09/09/21 18:28 Last Admin: 09/09/21 18:50 Dose: 999 mls/hr Documented by: Sodium Chloride (Normal Saline) 1,000 mls @ 999 mls/hr IV .Bolus ONE Stop: 09/09/21 18:58 Last Admin: 09/09/21 13:50 Dose: 999 mls/hr Documented by: Remdesivir 100 mg/ Sodium (Chloride) 100 mls @ 100 mls/hr IV Q24H [facility] Stop: 09/13/21 19:44 Iopamidol (Iopamidol 755 Mg/Ml 500 Ml Multipack Bottle) 75 ml IVPUSH ONETIME STA Stop: 09/09/21 20:37 Last Admin: 09/09/21 20:37 Dose: 75 ml Documented by: Ketorolac Tromethamine (Ketorolac 30 Mg/Ml Sdv) 15 mg IVPUSH ONETIME ONE Stop: 09/09/21 18:39 Last Admin: 09/09/21 18:51 Dose: 15 mg Documented by: Loperamide HCl (Loperamide 2 Mg Cap) 2 mg PO ONETIME ONE Stop: 09/11/21 11:50 Last Admin: 09/11/21 12:23 Dose: 2 mg Documented by:
== END 2021-09-12 16:55 | disposition home or self-care (01) | DRG 137 ==
LOC: MW.ED 13:36 → MW.MS 23:33
PROVIDERS: ADMIT Internal Medicine; ATTEND Internal Medicine
PROC: 3E0333Z Introduction of Anti-inflammatory into Peripheral Vein, Percutaneous Approach (ICD-10-PCS; principal; 2021-09-09)
PROC: XW033E5 Introduction of Remdesivir Anti-infective into Peripheral Vein, Percutaneous Approach, New Technology Group 5 (ICD-10-PCS; 2021-09-09)
DX: U07.1 COVID-19 (principal); J12.82 Pneumonia due to coronavirus disease 2019; N17.9 Acute kidney failure, unspecified; E86.0 Dehydration; I48.91 Unspecified atrial fibrillation
CPT/HCPCS: 36415; 71045; 71045-26; 71275; 71275-26; 74176; 74176-26; 80048; 80053; 81001; 83605; 83735; 84443; 84484; 85025; 85610; 85730; 87040; 87045; 87046; 87324; 87449; 87899; 93005; A9270-GY; J0153; J0456; J0696; J1100; J1650; J1885; J3490; J7030; J7050; J7120; Q9967; U0002